=== PATIENT | female | born 1965 | race Caucasian/White ===

== ENCOUNTER → 2016-11-21 | Outpatient (CLI) | payer BC, OTHER ==
[~2016-11-21] VITALS: Ht 157.5 cm; Wt 63.5 kg
[~2016-11-21] MED LIST: FLON1SPR; HYDR-727 PO; LIDOCAINE 2% INJ 100 MG/5 ML SDV (FOR ANES.) As Ordered ONE; NS 1,000 ML IV SCH; OMEP40CA2 PO; PROPOFOL 200 MG/20 ML VIAL As Ordered ONE; SING10TA32 PO; [UNRECOGNIZED DRUG - CODE]
--- NOTE | 2016-11-21 13:37 | ROOR ---
Patient Name: Riana Perales Procedure Date: 11/21/2016 1:16 PM Date of : 1965 Age: 51 Room: [facility] Gender: Female Note Status: Finalized Procedure: Upper GI endoscopy Indications: Surveillance procedure, Dysphagia, Follow-up of eosinophilic esophagitis Providers: Celso CASTELLANO MD Referring MD: LEE VALDEZ MD Requesting Provider: Medicines: Monitored Anesthesia Care Complications: No immediate complications. Procedure: Pre-Anesthesia Assessment: - The heart rate, respiratory rate, oxygen saturations, blood pressure, adequacy of pulmonary ventilation, and response to care were monitored throughout the procedure. The Endoscope was introduced through the mouth, and advanced to the second part of duodenum. The upper GI endoscopy was accomplished without difficulty. The patient tolerated the procedure well. Findings: The esophagus was normal. This was biopsied with a cold forceps for evaluation of eosinophilic esophagitis. The stomach was normal. The examined duodenum was normal. Impression: - Normal esophagus. Biopsied. (visually appears improved from previous exam--await biopsies) - Normal stomach. - Normal examined duodenum. Recommendation: - Continue present medications. - Telephone endoscopist for pathology results in 2 weeks. Celso Castellano MD Celso CASTELLANO MD 11/21/2016 1:36:32 PM This report has been signed electronically. Number of Addenda: 0 Note Initiated On: 11/21/2016 1:16 PM Estimated Blood Loss: Estimated blood loss: none.
[2016-11-21 13:55] VITALS: BP 148/95
== END | disposition home or self-care (01) ==
LOC: M OPP 12:15
PROVIDERS: ATTEND Internal Medicine Gastroenterology
DX: R13.10 Dysphagia, unspecified (principal); I10 Essential (primary) hypertension; R12 Heartburn; M19.90 Unspecified osteoarthritis, unspecified site; J45.909 Unspecified asthma, uncomplicated; Z79.899 Other long term (current) drug therapy

== ENCOUNTER → 2016-12-11 | Outpatient (REF) | payer OTHER ==
[~2016-12-11] MED LIST changes: -LIDOCAINE 2% INJ 100 MG/5 ML SDV (FOR ANES.) As Ordered ONE; -NS 1,000 ML IV SCH; -PROPOFOL 200 MG/20 ML VIAL As Ordered ONE
== END ==
LOC: M LAB REF 09:35
PROVIDERS: ATTEND Physician Assistant Medical
DX: R30.0 Dysuria (principal)

== ENCOUNTER → 2017-01-07 | Outpatient (CLI) | payer BC, OTHER ==
[2017-01-07 11:05] LABS: BLOOD UREA NITROGEN 11 MG/DL (7-18); CREATININE FOR GFR 0.72 MG/DL (0.55-1.02); GLOMERULAR FILTRATION RATE > 60.0 (>58); THYROXINE (T4) 7.4 UG/DL (4.5-12.0)
== END ==
LOC: M LAB 09:48
PROVIDERS: ATTEND Ophthalmology
DX: H53.2 Diplopia (principal); H02.432 Paralytic ptosis of left eyelid; H49.882 Other paralytic strabismus, left eye

== ENCOUNTER → 2017-01-13 | Outpatient (CLI) | payer BC, OTHER ==
--- NOTE | 2017-01-13 11:44 | REP ---
MR BRAIN WITHOUT AND WITH CONTRAST: HISTORY: Diplopia. CONTRAST: ProHance 12.5 mL. There are no areas of abnormal signal intensity in the brain. There is no intraparenchymal hemorrhage, infarct, mass or midline shift. The sella turcica is partially empty. There is no abnormal enhancement. The ventricular system is normal in appearance. There is no extracerebral collection. The visualized sinuses are clear. IMPRESSION: There is no intracranial lesion. Signed by Renan Chen MD 01/13/2017 11:56 A
--- NOTE | 2017-01-13 11:45 | REP ---
MR ORBITS WITHOUT AND WITH CONTRAST: HISTORY: Diplopia. CONTRAST: ProHance 12.5 mL. The globes, optic nerves and rectus muscles are normal in appearance. There is no orbital lesion. There is no abnormal enhancement. The sella turcica is partially empty. The cavernous sinuses, optic chiasm and hypothalamus are normal in appearance. The sinuses are clear. IMPRESSION: There is no orbital lesion. Signed by Renan Chen MD 01/13/2017 11:56 A
== END ==
LOC: M RAD 09:28
PROVIDERS: ATTEND Ophthalmology
DX: H02.432 Paralytic ptosis of left eyelid (principal); H53.2 Diplopia; H49.882 Other paralytic strabismus, left eye
CPT/HCPCS: 70543; 70553; A9576

== ENCOUNTER → 2017-08-27 | Outpatient (CLI) | payer BC, OTHER | LOC: M RAD 15:02 | DX: N39.0 Urinary tract infection, site not specified (principal); M47.892 Other spondylosis, cervical region | CPT/HCPCS: 72141 ==

== ENCOUNTER → 2017-09-12 | Outpatient (CLI) | payer OTHER, BC ==
[2017-09-12 19:09] LABS: HEMATOCRIT 37.2 % (36.0-47.0); HEMOGLOBIN 11.9 g/dl (12.0-16.0); MEAN CORPUSCULAR HEMOGLOBIN 29.9 pg (27.0-33.0); MEAN CORPUSCULAR VOLUME 93.5 fl (80.0-96.0); PLATELET COUNT, AUTOMATED 282 10^3/uL (150-450); RED BLOOD COUNT 3.98 10^6/uL (4.00-5.40); RED CELL DISTRIBUTION WIDTH 13.5 % (11.5-14.5)
[2017-09-12 19:32] LABS: C REACTIVE PROTEIN QUANTITATIV < 0.30 MG/DL (0.00-0.30)
[2017-09-12 19:32] LABS: RHEUMATOID FACTOR QUANT < 10.0 IU/ML (0-15.0)
[2017-09-12 19:53] LABS: ERYTHROCYTE SEDIMENTATION RATE 11 mm/hr (0-30)
[2017-09-15 14:14] LABS: ANTINUCLEAR ANTIBODIES DIRECT Negative (Negative)
== END ==
LOC: M WUC 16:38
DX: G83.81 Brown-Sequard syndrome (principal)
CPT/HCPCS: 86140

== ENCOUNTER → 2017-09-16 | Outpatient (REF) | payer OTHER, BC ==
[2017-09-16 15:09] LABS: APPEARANCE, URINE HAZY (CLEAR); BACTERIA, URINE AUTO 1+ (NEGATIVE); BILIRUBIN, URINE AUTO NEGATIVE (NEGATIVE); BLOOD, URINE BLOOD 1+ (NEGATIVE); COLOR, URINE YELLOW (YELLOW); GLUCOSE, URINE (UA) AUTO NEGATIVE (NEGATIVE); KETONE, URINE AUTO NEGATIVE (NEGATIVE); LEUKOCYTE ESTERASE, URINE AUTO 2+ (NEGATIVE); NITRITE, URINE AUTO NEGATIVE (NEGATIVE); PROTEIN, URINE AUTO NEGATIVE (NEGATIVE); RBC, URINE AUTO 4 /HPF (0-3); SPECIFIC GRAVITY URINE AUTO 1.008 (1.002-1.035); SQUAMOUS EPITHELIAL CELL UR AU 0 /HPF (0-6); UROBILINOGEN, URINE AUTO 0.2 mg/dL (0.0-2.0); WBC, URINE AUTO 11 /HPF (0-3)
== END ==
LOC: M LAB REF 13:16
DX: N39.0 Urinary tract infection, site not specified (principal)
CPT/HCPCS: 81001

== ENCOUNTER → 2017-10-07 | Outpatient (CLI) | payer BC, OTHER | LOC: M SMT 07:58 | DX: N39.0 Urinary tract infection, site not specified (principal) | CPT/HCPCS: 76770 ==

== ENCOUNTER → 2017-10-13 | Outpatient (REF) | payer OTHER, BC ==
[2017-10-13 18:24] LABS: APPEARANCE, URINE CLEAR (CLEAR); BACTERIA, URINE AUTO NEGATIVE (NEGATIVE); BILIRUBIN, URINE AUTO NEGATIVE (NEGATIVE); BLOOD, URINE BLOOD NEGATIVE (NEGATIVE); COLOR, URINE STRAW (YELLOW); GLUCOSE, URINE (UA) AUTO NEGATIVE (NEGATIVE); KETONE, URINE AUTO NEGATIVE (NEGATIVE); LEUKOCYTE ESTERASE, URINE AUTO NEGATIVE (NEGATIVE); NITRITE, URINE AUTO NEGATIVE (NEGATIVE); PROTEIN, URINE AUTO NEGATIVE (NEGATIVE); RBC, URINE AUTO 2 /HPF (0-3); SPECIFIC GRAVITY URINE AUTO 1.009 (1.002-1.035); SQUAMOUS EPITHELIAL CELL UR AU 0 /HPF (0-6); UROBILINOGEN, URINE AUTO 0.2 mg/dL (0.0-2.0); WBC, URINE AUTO 0 /HPF (0-3)
== END ==
LOC: M SMT 16:52
DX: N39.0 Urinary tract infection, site not specified (principal)

== ENCOUNTER 2017-12-11 09:37 | Day surgery (SDC) | payer BC, OTHER ==
[2017-12-11] MEDS: NS 1,000 ML IV (09:45)
[2017-12-11] MEDS ORDERED: LIDOCAINE 2% INJ 100 MG/5 ML SDV (FOR ANES.) As Ordered (10:51)
[2017-12-11] MEDS ORDERED: PROPOFOL 200 MG/20 ML VIAL As Ordered (10:51)
== END 2017-12-11 11:42 | disposition home or self-care (01) ==
LOC: M OPP 09:37
DX: Z12.11 Encounter for screening for malignant neoplasm of colon (principal); K62.1 Rectal polyp; I10 Essential (primary) hypertension; J45.909 Unspecified asthma, uncomplicated; E78.00 Pure hypercholesterolemia, unspecified; M12.9 Arthropathy, unspecified; Z79.899 Other long term (current) drug therapy; Z90.710 Acquired absence of both cervix and uterus; Z96.0 Presence of urogenital implants
CPT/HCPCS: 45385

== ENCOUNTER → 2018-05-25 | Outpatient (CLI) | payer BC, OTHER | LOC: M WUC 17:23 | DX: S80.02XA Contusion of left knee, initial encounter (principal); M25.532 Pain in left wrist; M19.032 Primary osteoarthritis, left wrist | CPT/HCPCS: 73110 ==

== ENCOUNTER → 2019-03-23 | Outpatient (REF) ==
[2019-03-23 12:48] LABS: BASO # 0.1 10^3/uL (0.0-0.2); BASO % 0.9 % (0.0-1.0); EOS # 0.2 10^3/uL (0.0-0.50); EOS % 2.5 % (0.0-3.0); HEMATOCRIT 39.9 % (36.0-47.0); HEMOGLOBIN 12.6 g/dl (12.0-15.5); LYMPH # 2.1 10^3/uL (1.5-4.5); LYMPH % 26.8 % (24.0-44.0); MEAN CORPUSCULAR HEMOGLOBIN 28.5 pg (27.0-33.0); MEAN CORPUSCULAR HGB CONC 31.6 g/dl (32.0-36.5); MEAN CORPUSCULAR VOLUME 90.3 fl (80.0-96.0); MONO # 0.6 10^3/uL (0.0-0.8); MONO % 7.6 % (0.0-5.0); NEUTROPHILS # 4.9 10^3/uL (1.8-7.7); NEUTROPHILS % 61.9 % (36.0-66.0); PLATELET COUNT, AUTOMATED 202 10^3/uL (150-450); RED BLOOD COUNT 4.42 10^6/uL (4.00-5.40); WHITE BLOOD COUNT 7.9 10^3/uL (4.0-10.0)
== END ==
LOC: M LABSMT 12:13
PROVIDERS: ATTEND Allergy & Immunology Allergy
DX: J45.30 Mild persistent asthma, uncomplicated (principal)

== ENCOUNTER → 2020-04-13 | Outpatient (REF) | payer OTHER ==
[~2020-04-13] MED LIST changes: -OMEP40CA2 PO; +OMEP40CA97 PO
== END ==
LOC: M LAB REF 12:55
PROVIDERS: ATTEND Physician Assistant
DX: J02.9 Acute pharyngitis, unspecified (principal)

== ENCOUNTER → 2020-11-01 | Outpatient (CLI) | payer BC, OTHER | LOC: M LAB 15:50 | PROVIDERS: ATTEND Internal Medicine Gastroenterology | DX: K20.0 Eosinophilic esophagitis (principal) ==

== ENCOUNTER → 2020-11-18 | Outpatient (CLI) | payer BC, OTHER ==
[~2020-11-18] MED LIST changes: +FLUT22IN; +HYDR12.55
== END ==
LOC: M LABSMTC 08:25
PROVIDERS: ATTEND Anesthesiology
DX: Z01.812 Encounter for preprocedural laboratory examination (principal); Z20.822 Contact with and (suspected) exposure to COVID-19

== ENCOUNTER 2020-11-23 07:38 | Day surgery (SDC) | payer BC, OTHER ==
[~2020-11-23] VITALS: Ht 157.5 cm; Wt 66.7 kg
[~2020-11-23 07:38] MED LIST changes: +NS 1,000 ML IV ONE
[2020-11-23] MEDS ORDERED: LIDOCAINE 2% 100MG/5ML SDV (FOR ANES.) As Ordered ONE (08:16)
[2020-11-23] MEDS ORDERED: propofoL 200 MG/20 ML VIAL As Ordered ONE (08:16)
--- NOTE | 2020-11-23 09:10 | ROOR ---
Patient Name: Riana Perales Procedure Date: 11/23/2020 8:55 AM Date of : 1965 Age: 55 Room: [facility] Gender: Female Note Status: Finalized Procedure: Upper GI endoscopy Indications: Follow-up of eosinophilic esophagitis, Follow-up of PPI-responsive esophageal eosinophilia, Globus sensation Providers: Celso CASTELLANO MD Referring MD: LEE VALDEZ MD Requesting Provider: Medicines: Monitored Anesthesia Care Complications: No immediate complications. Procedure: Pre-Anesthesia Assessment: - The heart rate, respiratory rate, oxygen saturations, blood pressure, adequacy of pulmonary ventilation, and response to care were monitored throughout the procedure. The Endoscope was introduced through the mouth, and advanced to the second part of duodenum. The upper GI endoscopy was accomplished without difficulty. The patient tolerated the procedure well. Findings: The esophagus was normal. The stomach was normal. The examined duodenum was normal. Several biopsies were obtained in the upper third of the esophagus and in the middle third of the esophagus with cold forceps for evaluation of eosinophilic esophagitis. Impression: - Normal esophagus. - Normal stomach. - Normal examined duodenum. - Several biopsies were obtained in the upper third of the esophagus and in the middle third of the esophagus. Recommendation: - Use Prilosec (omeprazole) 40 mg PO BID. - Gluten/Wheat/Dairy free diet - Telephone endoscopist for pathology results in 2 weeks. Procedure Code(s): --- Professional --- 85171, Esophagogastroduodenoscopy, flexible, transoral; with biopsy, single or multiple Diagnosis Code(s): --- Professional --- F45.8, Other somatoform disorders K22.8, Other specified diseases of esophagus K20.0, Eosinophilic esophagitis CPT copyright 2019 [employer]. All rights reserved. The codes documented in this report are preliminary and upon internet merchant review may be revised to meet current compliance requirements. Celso Castellano MD Celso CASTELLANO MD 11/23/2020 9:10:28 AM Electronically signed by Celso CASTELLANO MD Number of Addenda: 0 Note Initiated On: 11/23/2020 8:55 AM Estimated Blood Loss: Estimated blood loss: none.
[2020-11-23 09:25] VITALS: BP 135/84
== END 2020-11-23 09:48 | disposition home or self-care (01) ==
LOC: M OPP 07:38
PROVIDERS: ATTEND Internal Medicine Gastroenterology
DX: K20.0 Eosinophilic esophagitis (principal); K22.8 Other specified diseases of esophagus; F45.8 Other somatoform disorders; Z79.899 Other long term (current) drug therapy

== ENCOUNTER → 2021-03-11 | Outpatient (CLI) | payer BC, OTHER ==
[~2021-03-11] MED LIST changes: -NS 1,000 ML IV ONE; +OMEP40CA4 PO; -OMEP40CA97 PO
== END ==
LOC: M LABSMTC 11:48
PROVIDERS: ATTEND Anesthesiology
DX: Z01.812 Encounter for preprocedural laboratory examination (principal); Z20.822 Contact with and (suspected) exposure to COVID-19

== ENCOUNTER 2021-03-15 12:20 | Day surgery (SDC) | payer BC, OTHER ==
[~2021-03-15] VITALS: Ht 157.5 cm; Wt 64.9 kg
[~2021-03-15 12:20] MED LIST changes: +NS 1,000 ML IV ONE
[2021-03-15] MEDS ORDERED: LIDOCAINE 2% 100MG/5ML SDV (FOR ANES.) As Ordered ONE (14:06)
[2021-03-15] MEDS ORDERED: propofoL 200 MG/20 ML VIAL As Ordered ONE (14:06)
--- NOTE | 2021-03-15 14:20 | ROOR ---
Patient Name: Riana Perales Procedure Date: 03/15/2021 2:04 PM Date of : 1965 Age: 55 Room: [facility] Gender: Female Note Status: Finalized Procedure: Upper GI endoscopy Indications: Iron deficiency anemia, Follow-up of eosinophilic esophagitis Providers: Celso Castellano MD Referring MD: LEE VALDEZ MD Requesting Provider: Medicines: Monitored Anesthesia Care Complications: No immediate complications. Procedure: Pre-Anesthesia Assessment: - The heart rate, respiratory rate, oxygen saturations, blood pressure, adequacy of pulmonary ventilation, and response to care were monitored throughout the procedure. The Endoscope was introduced through the mouth, and advanced to the second part of duodenum. The upper GI endoscopy was accomplished without difficulty. The patient tolerated the procedure well. Findings: The esophagus was normal. The stomach was normal. The examined duodenum was normal. Biopsies for histology were taken with a cold forceps in the second portion of the duodenum and in the third portion of the duodenum for evaluation of celiac disease. Biopsies were taken with a cold forceps in the upper third of the esophagus and in the middle third of the esophagus for histology. Impression: - Normal esophagus. - Normal stomach. - Normal examined duodenum. - Biopsies were taken with a cold forceps for evaluation of celiac disease. - Biopsies were taken with a cold forceps for histology in the upper third of the esophagus and in the middle third of the esophagus. Recommendation: - Await pathology results. - Continue present medications. Procedure Code(s): --- Professional --- 17465, Esophagogastroduodenoscopy, flexible, transoral; with biopsy, single or multiple Diagnosis Code(s): --- Professional --- K20.0, Eosinophilic esophagitis D50.9, Iron deficiency anemia, unspecified CPT copyright 2019 [employer]. All rights reserved. The codes documented in this report are preliminary and upon profiler operator review may be revised to meet current compliance requirements. Celso Castellano MD Celso Castellano MD 03/15/2021 2:19:47 PM Electronically signed by Celso Castellano MD Number of Addenda: 0 Note Initiated On: 03/15/2021 2:04 PM Estimated Blood Loss: Estimated blood loss: none.
--- NOTE | 2021-03-15 14:43 | ROOR ---
Patient Name: Riana Perales Procedure Date: 03/15/2021 2:04 PM Date of : 1965 Age: 55 Room: [facility] Gender: Female Note Status: Finalized Procedure: Colonoscopy Indications: Iron deficiency anemia Providers: Celso Castellano MD Referring MD: LEE VALDEZ MD Requesting Provider: Medicines: Monitored Anesthesia Care Complications: No immediate complications. Procedure: Pre-Anesthesia Assessment: - The heart rate, respiratory rate, oxygen saturations, blood pressure, adequacy of pulmonary ventilation, and response to care were monitored throughout the procedure. The Colonoscope was introduced through the anus and advanced to 10 cm into the ileum. The colonoscopy was performed without difficulty. The patient tolerated the procedure well. The quality of the bowel preparation was good. Findings: The perianal and digital rectal examinations were normal. A 5 mm polyp was found in the sigmoid colon. The polyp was sessile. The polyp was removed with a cold snare. Resection and retrieval were complete. To prevent bleeding after the polypectomy, one hemostatic clip was successfully placed. Small Internal Hemorrhoids. The exam was otherwise normal throughout the examined colon. The terminal ileum appeared normal. Impression: - One 5 mm polyp in the sigmoid colon, removed with a cold snare. Resected and retrieved. Clip was placed. - Small Internal Hemorrhoids. - The colon and examined portion of the ileum are otherwise normal. Recommendation: - To visualize the small bowel, perform video capsule endoscopy at appointment to be scheduled. - My office will call you in the next few days to set you up for this study/exam. - Repeat colonoscopy in 5 years for surveillance. Procedure Code(s): --- Professional --- 69035, Colonoscopy, flexible; with removal of tumor(s), polyp(s), or other lesion(s) by snare technique Diagnosis Code(s): --- Professional --- D50.9, Iron deficiency anemia, unspecified K63.5, Polyp of colon CPT copyright 2019 [employer]. All rights reserved. The codes documented in this report are preliminary and upon battery repairer review may be revised to meet current compliance requirements. Celso Castellano MD Celso Castellano MD 03/15/2021 2:42:53 PM Electronically signed by Celso Castellano MD Number of Addenda: 0 Note Initiated On: 03/15/2021 2:04 PM Estimated Blood Loss: Estimated blood loss: none.
[2021-03-15 15:16] VITALS: BP 138/84
== END 2021-03-15 15:14 | disposition home or self-care (01) ==
LOC: M OPP 12:20
PROVIDERS: ATTEND Internal Medicine Gastroenterology
DX: D12.6 Benign neoplasm of colon, unspecified (principal); K64.8 Other hemorrhoids; D50.9 Iron deficiency anemia, unspecified; K20.0 Eosinophilic esophagitis; K21.9 Gastro-esophageal reflux disease without esophagitis; R12 Heartburn

== ENCOUNTER → 2021-03-20 | Outpatient (CLI) | payer BC, OTHER ==
[~2021-03-20] MED LIST changes: -NS 1,000 ML IV ONE
--- NOTE | 2021-03-20 15:28 | REP ---
INDICATION: FOREIGN BODY IN INTESTINE. COMPARISON: None. TECHNIQUE: Two KUB FINDINGS: The intestinal gas pattern is nonspecific. Gas and stool seen throughout the colon and within the rectosigmoid region in no particular fashion. In what is most likely the distal transverse colon there is a 1.8 by 1.4 cm sized radiopaque foreign body consistent with the known ingested capsule. IMPRESSION: As above <Electronically signed by Kamar Chong > 03/20/21 [id number]
== END ==
LOC: M RAD 14:38
PROVIDERS: ATTEND Internal Medicine Gastroenterology
DX: T18.3XXA Foreign body in small intestine, initial encounter (principal)

== ENCOUNTER 2022-11-27 13:17 | Day surgery (SDC) | payer BC, OTHER ==
[~2022-11-27] VITALS: Ht 157.5 cm; Wt 66.7 kg
[~2022-11-27 13:17] MED LIST changes: +ALBU8.5H; +MONT-5 PO; +NS 1,000 ML IV ONE; +ROSU5TAB5 PO; -SING10TA32 PO
[2022-11-27] MEDS ORDERED: LIDOCAINE 2% 100MG/5ML SDV (FOR ANES.) As Ordered ONE (15:15)
[2022-11-27] MEDS ORDERED: propofoL 200 MG/20 ML VIAL As Ordered ONE (15:15)
[2022-11-27] MEDS ORDERED: fentaNYL 100 MCG/2 ML INJECTION As Ordered ONE (15:15)
[2022-11-27 17:24] VITALS: BP 160/92
== END 2022-11-27 17:26 | disposition home or self-care (01) ==
LOC: M OPP 13:17
PROVIDERS: ATTEND Internal Medicine Gastroenterology
DX: R12 Heartburn (principal); K21.9 Gastro-esophageal reflux disease without esophagitis
CPT/HCPCS: 43239; 88305; J3010

== ENCOUNTER → 2023-09-11 | Outpatient (CLI) | payer BC, OTHER ==
[~2023-09-11] MED LIST changes: -NS 1,000 ML IV ONE
[2023-09-14 18:08] LABS: TESTOSTERONE FREE (DIRECT) 1.5 pg/mL (0.0-4.2)
== END ==
LOC: M PLALAB 13:35
PROVIDERS: ATTEND Nurse Practitioner Family
DX: R53.83 Other fatigue (principal)

== ENCOUNTER → 2024-12-21 | Outpatient (CLI) | payer BC ==
[~2024-12-21] MED LIST changes: +ROSU5TAB49 PO; -ROSU5TAB5 PO
== END ==
LOC: M PLALAB 14:00
PROVIDERS: ATTEND Nurse Practitioner Family
DX: R53.82 Chronic fatigue, unspecified (principal)

== ENCOUNTER 2025-07-14 07:22 | Day surgery (SDC) | payer BC ==
[~2025-07-14] VITALS: Ht 157.5 cm; Wt 66.5 kg
[~2025-07-14 07:22] MED LIST changes: +SPIR50TA4 PO; +VALS1TAB66 PO
[2025-07-14] MEDS ORDERED: LIDOCAINE 2% 100 MG/5 ML SDV (FOR ANES.) As Ordered ONE (08:34)
[2025-07-14 08:39] VITALS: TEMP 97.2
[2025-07-14 08:55] VITALS: BP 125/88; O2SAT 99
== END 2025-07-14 09:01 | disposition home or self-care (01) ==
LOC: M OPP 07:22
PROVIDERS: ATTEND Surgery
DX: K31.7 Polyp of stomach and duodenum (principal); Z91.048 Other nonmedicinal substance allergy status; Z79.899 Other long term (current) drug therapy; J45.909 Unspecified asthma, uncomplicated
CPT/HCPCS: 43239; 88305; J3010